=== PATIENT | male | born 1990 | race Caucasian/White ===

== ENCOUNTER 2017-01-15 17:03 | Emergency (ER) | payer OTHER ==
[~2017-01-15] VITALS: Ht 170.2 cm; Wt 77.3 kg
[~2017-01-15 17:03] MED LIST: NOCURR
[2017-01-15] MEDS ORDERED: KETOROLAC TROMETHAMINE 30 MG/ML VIAL IM ONE (18:30)
[2017-01-15] MEDS ORDERED: METHOCARBAMOL 500 MG TABLET PO ONE (18:30)
[2017-01-15 19:22] VITALS: BP 125/82
== END 2017-01-15 19:56 | disposition home or self-care (01) ==
LOC: EMS 17:05
DX: S13.4XXA Sprain of ligaments of cervical spine, initial encounter (principal); V43.62XA Car passenger injured in collision with other type car in traffic accident, initial encounter; Y93.89 Activity, other specified; Y92.411 Interstate highway as the place of occurrence of the external cause; Y99.8 Other external cause status
CPT/HCPCS: 72040; 96372; 99284; J1885

== ENCOUNTER 2023-01-11 04:43 | Emergency (ER) | payer OTHER ==
[~2023-01-11] VITALS: Ht 167.6 cm; Wt 90.9 kg
[2023-01-11 04:58] VITALS: TEMP 98.5
[2023-01-11 05:07] VITALS: BP 136/82; PULSE 84; RESP 20
== END 2023-01-11 06:39 | disposition left against medical advice (07) ==
LOC: EMS 04:44
DX: R47.81 Slurred speech (principal); F10.129 Alcohol abuse with intoxication, unspecified; Z53.21 Procedure and treatment not carried out due to patient leaving prior to being seen by health care provider; Y90.9 Presence of alcohol in blood, level not specified
CPT/HCPCS: 99281; Z7502